=== PATIENT | female | born 1940 | race Asian ===

== ENCOUNTER 2016-06-27 10:35 | Inpatient (IN) | payer MEDICARE, MEDICAID ==
[2016-06-27] MEDS ORDERED: IOPAMIDOL 370 (76%) IV.SOLN 150 ML IV ONE (10:36)
[2016-06-27] MEDS ORDERED: ALBUTEROL/IPRATROPIUM 2.5/0.5 MG 3 ML/EACH DOSE ONE (11:22)
--- NOTE | 2016-06-27 11:38 | CT ---
HEAD W/O CON COMPARISON: None HISTORY: Headache, nausea, vomiting, and fatigue. TECHNIQUE: Using a [employer] Aquilion [address] scanner, images were obtained through the head. An automated dose reduction technique was used to minimize patient radiation dose. DOSE INFORMATION: CTDIvol (mGy): 51.70 DLP(mGycm): 887.30 FINDINGS: Mass: None Intracranial Hemorrhage: None Acute Infarction: None Cerebral hemispheres: No acute finding. Moderate atrophy and low attenuation white matter. Basal ganglia: Low-attenuation in both caudate nuclei. Thalami: Normal Brainstem: Normal Cerebellum: Normal Ventricles: Normal Basilar cisterns: Normal Corpus callosum: Normal Pituitary fossa: Empty sella. No enlargement. Middle ears and mastoid air cells: Mild chronic sclerosis of the left mastoid air cells. No fluid. Orbits and sinuses: Normal Skull and scalp: Normal Dural sinuses and vessels: Normal IMPRESSION: 1. No acute finding. No intracranial hemorrhage or cerebral edema. 2. Moderate cerebral atrophy with moderate chronic small vessel schema change of the cerebral white matter and the basal ganglia. 3. Mild chronic sclerosis of the left mastoid air cells. The report was sent to the emergency department electronic medical record system 06/27/2016 at 11:40
--- NOTE | 2016-06-27 11:44 | RAD ---
CHEST - 2 VIEWS COMPARISON: Chest 2 views, 01/13/2016 HISTORY: Dyspnea FINDINGS: Views: Frontal and lateral chest Lungs: Normal Heart and vessels: No acute finding. Cardiomegaly and atherosclerosis of the aorta. The pulmonary vessels are not enlarged. Trachea and bronchi: Normal Mediastinum and jadon: Normal Costophrenic sulci: Normal Chest wall and bones: No acute finding. Degenerative changes and hardware in the spine. Old compression fracture of T11. Upper abdomen: Surgical clips in the upper abdomen. IMPRESSION: No acute finding. Atherosclerosis of the aorta with elongation and myocardium likely. No infiltrate. No vascular congestion or pleural effusion.
[2016-06-27] MEDS ORDERED: HYDROCHLOROTHIAZIDE 25 MG TABLET ONE (11:49)
[2016-06-27 12:14] LABS: ABSOLUTE NEUTROPHIL COUNT 5.1 K/mm3 (1.8-7.7); BASO # 0.1 K/mm3 (0.0-0.2); BASO % 0.6 % (0.2-1.0); EOS # 0.8 (0.0-0.5); EOS % 9.1 % (0.9-2.9); HEMATOCRIT 31.2 % (37.0-47.0); HEMOGLOBIN 9.7 gm/l (12.0-16.0); IMM NEUT% 0.2 % (0-1); LYMPH % 23.8 % (15-45); MEAN CELL VOLUME 82.3 fl (81.0-99.0); MEAN CORPUSCULAR HEMOGLOBIN 25.6 pg (27.0-31.0); MEAN CORPUSCULAR HGB CONC 31.1 g/dl (33.0-37.0); MEAN PLATELET VOLUME 9.1 fl (7.4-10.4); MONO # 0.5 (0.0-0.8); MONO % 5.9 % (4-12); NEUT % 60.4 % (43-75); PLATELET COUNT 245 K/mm3 (130-400); RED CELL DISTRIBUTION WIDTH 17.9 % (11.5-14.5)
[2016-06-27] MEDS ORDERED: METOPROLOL TARTRATE 25 MG TABLET PO ONE (12:15)
[2016-06-27] MEDS ORDERED: DEXAMETHASONE 4 MG TABLET PO ONE (12:15)
[2016-06-27] MEDS ORDERED: LOSARTAN POTASSIUM 50 MG TABLET PO ONE (12:15)
[2016-06-27 12:35] LABS: CALCIUM 9.8 mg/dL (8.6-10.3)
[2016-06-27 12:41] LABS: TROPONIN I 0.02 ng/ml (0.0-0.06)
[2016-06-27 12:44] LABS: CKMB ISOENZYME 2.6 ng/ml (0.6-6.3)
[2016-06-27 12:49] LABS: PH,URINE 6.5 (5.0-8.0); URINE BILIRUBIN NEGATIVE (NEGATIVE); URINE BLOOD NEGATIVE (NEGATIVE); URINE GLUCOSE (UA) NEGATIVE (NEGATIVE); URINE LEUKOCYTE ESTERASE NEGATIVE (NEGATIVE); URINE NITRITE NEGATIVE (NEGATIVE); URINE PROTEIN NEGATIVE (NEGATIVE); URINE UROBILINOGEN NORMAL (0-1 mg/dl)
[2016-06-27 13:03] LABS: URINE APPEARANCE CLEAR; URINE COLOR YELLOW
--- NOTE | 2016-06-27 13:14 | CT ---
ABD/PELVIS W/ CON COMPARISON: CT abdomen and pelvis, 12/10/2013 HISTORY: Abdominal pain and vomiting Technique: No oral contrast. Intravenous injection 125 mL Isovue 370. Using a [employer] Aquilion [address] scanner, images were obtained from the diaphragm to the floor the pelvis. An automated dose reduction technique was used to minimize patient radiation dose. Dose information: CTDIvol (mGy): 25.30 DLP(mGycm): 1247.60 FINDINGS: Lung bases: Subsegmental atelectasis in the right middle lobe. Inferior mediastinum and heart: Normal. Liver: Normal. Gallbladder: Cholecystectomy Bile ducts: Normal. Pancreas: Atrophy. Spleen: Normal. Adrenal glands: Normal. Kidneys: Bilateral simple renal cysts. Ureters: Normal Urinary bladder: Normal. Uterus and adnexa: Hysterectomy Blood vessels: Normal Lymph nodes: Normal Stomach: Normal Duodenum: Normal Small intestine: Normal Appendix: Not visible. Colon: Diffuse diverticulosis. No diverticulitis. Abdominal wall and supporting musculature: Normal Bones: No acute finding. T12-L3 fusion hardware. Old compression fractures of T11 and L4, treated with vertebroplasty cement at L4. IMPRESSION: 1. No acute finding. 2. Incidental findings include subsegmental atelectasis in the right middle lobe, cholecystectomy, atrophy of the pancreas, bilateral simple renal cysts, hysterectomy, probable appendectomy, diffuse colonic diverticulosis, and postoperative changes and old compression fractures in the thoracolumbar spine. The report was sent to the emergency department electronic medical record system 06/27/2016 at 13:10
[2016-06-27] MEDS ORDERED: FENTANYL 100 MCG/2 ML VIAL ONE (13:31)
[2016-06-27] MEDS ORDERED: ACETAMINOPHEN 325 MG TABLET ONE (13:32)
[2016-06-27] MEDS ORDERED: KETOROLAC TROMETHAMINE 30 MG/ML 1 ML VIAL ONE (13:33)
[2016-06-27] MEDS ORDERED: AMLODIPINE BESYLATE 5 MG TABLET PO ONE (15:52)
[2016-06-27 16:04] VITALS: BMI 39.1
[2016-06-27] MEDS ORDERED: SODIUM CHLORIDE 0.9% 100 ML IV PRN (16:34)
[2016-06-27] MEDS ORDERED: MENTHOL/CETYLPYRD 1 EACH LOZENGE PO PRN (16:34)
[2016-06-27] MEDS ORDERED: BLISTEX LIPSTICK 1 EACH TP PRN (16:34)
[2016-06-27] MEDS ORDERED: BISACODYL 10 MG SUP PR PRN (16:34)
[2016-06-27] MEDS ORDERED: MAGNESIUM HYDROXIDE 30 ML UDCUP PO PRN (16:34)
[2016-06-27] MEDS ORDERED: BISACODYL 5 MG TABLET.EC PO PRN (16:34)
[2016-06-27] MEDS ORDERED: CEFTRIAXONE 1 GRAM DUPLEX 1 G in Premix (D5W) 50 ml 1 EACH IV SCH (16:45)
[2016-06-27] MEDS ORDERED: SODIUM CHLORIDE 0.9% 500 ML IV SCH (16:45)
[2016-06-27] MEDS ORDERED: PUMP TUBING ONE (16:53)
[2016-06-27] MEDS ORDERED: ALBUTEROL SULFATE MDI 60 PUFFS/INHALER IH PRN (17:01)
[2016-06-27] MEDS ORDERED: TRAZODONE HCL 50 MG TABLET PO PRN (17:01)
[2016-06-27] MEDS ORDERED: IRON SUCROSE COMPLEX 200 MG in SODIUM CHLORIDE 0.9% 100 ML IV ONE (17:30)
[2016-06-27] MEDS: ALBUTEROL/IPRATROPIUM 2.5/0.5 MG 3 ML/EACH DOSE IH PRN ×2 (17:30→21:04)
[2016-06-27 17:49] LABS: ARTERIAL BLOOD GAS HCO3 23.1 mmol/L (22.0-28.0); ARTERIAL BLOOD GAS PCO2 40.7 mmHg (35.0-45.0); ARTERIAL BLOOD GAS PO2 68.7 mmHg (80.0-90.0); ARTERIAL BLOOD GAS pH 7.372 (7.350-7.450)
[2016-06-27] MEDS: ACETAMINOPHEN 325 MG TABLET PO PRN (17:50)
[2016-06-27 17:58] LABS: THYROID STIMULATING HORMONE 1.19 uIU/ml (0.34-5.60)
[2016-06-27 19:15] LABS: FREE T4 1.12 ng/dL (0.58-1.64)
--- NOTE | 2016-06-27 19:56 | HP ---
GINA MEZA [id number] DATE OF ADMISSION: 06/27/2016 CHIEF COMPLAINT: Headache. HISTORY OF PRESENT ILLNESS: The patient is a 75-year-old female who has been noted to have elevated blood pressure and headaches over the last month or so. She had her caregiver check her blood pressure and it was 207/97, along with a headache and some nausea, and the headache had been reported as 9/10. She had been seen earlier this month with a similar blood pressure that had been reported going on for about a month. Her metoprolol had been increased to twice a day and the increase in medicine did not seem to help much. She denies prior history. The headache is bilateral, from the occiput to the temples bilaterally. No particular relieving factors. She does note some photophobia and some phonophobia. She has not had a fever, but in the emergency department she was noted to have at one time an oxygen saturation to 88% while on room air. PAST MEDICAL HISTORY: Remarkable for: 1. Anxiety. 2. Asthma. 3. She has had a history of DVT greater than three years ago and has been on Pradaxa for this. 4. She has a history of compression fractures. 5. Dyslipidemia. 6. Hypertension. 7. Obstructive sleep apnea, for which she uses nasal BiPAP. 8. Headaches. PAST SURGICAL HISTORY: Remarkable for: 1. Kyphoplasty. 2. Cholecystectomy. 3. Appendectomy. 4. Hysterectomy. 5. T12 - L3 fusion. 6. Additional L1 - L3 surgery in 2013. 7. Kidney stone removal. ALLERGIES: Listed as Gabapentin. MEDICATIONS: Estimated to be based on outpatient record and the list the caregiver provides is: 1. Acetaminophen 1,000 mg by mouth every six hours as needed. 2. ProAir two puffs inhaled every four hours as needed. 3. DuoNeb 3 mL inhaled four times a day as needed. 4. Vitamin C 500 mg by mouth twice a day. 5. Aspirin 81 mg by mouth daily. 6. Cetirizine 10 mg daily as needed. 7. Pradaxa 150 mg by mouth twice a day. 8. Docusate 100 mg by mouth twice a day. 9. Cymbalta 60 mg by mouth daily. 10. Ferrous sulfate 325 mg by mouth twice a day. 11. Fluticasone/salmeterol 500/50 one puff inhaled twice a day. 12. Hydrochlorothiazide 25 mg daily. 13. Combivent two puffs inhaled twice a day. 14. [place]away eye drops both eyes twice a day. 15. Losartan 100 mg by mouth daily. 16. Metoprolol 75 mg by mouth twice a day. 17. MiraLAX 17 grams by mouth daily. 18. Requip 1 mg by mouth twice a day 19. Zocor 10 mg by mouth every P.M. 20. Trazodone 100 mg at bedtime. 21. Vitamin D-3, 1,000 units by mouth daily. SOCIAL HISTORY: She lives in [facility]. She is , but her is [id number] back in [place]. She has had five children, three of which are living. No smoking and no alcohol. She goes to the [employer]. Hobbies include reading, knitting and crocheting. She does not have a POLST form. She does not have any pets. She was born in [place] and lived in [place] and then [place]. FAMILY HISTORY: Father, no data, as her parents do not seek medical care. Mom had at childbirth. REVIEW OF SYSTEMS: HEENT - eyes have been okay. She notes some vision difficulty, but it sounds like she is describing some degree of photophobia with light sensitivity. No scalp complaints. No hair changes, although she notes some general hair thinning. Ears are somewhat sensitive, but hearing is otherwise normal from an acuity perspective. Nose is okay. Mouth is okay, although she reports she does not have a lot of teeth left. Neck - she states it hurts all the times, but has been this way for years. Her caregiver notes that she has a spot near her right scapula which can be very sensitive. Pulmonary - breathing varies. She notes that she can have difficulty breathing sometimes and can have some sputum production on a regular basis which is usually light-colored. She notes she can be short of breath at times. Heart - no complaints. No chest pain and no chest pressure. GI - stomach has been okay. No pain. She did have loose stool this morning after having some medications for constipation yesterday. She had some vomiting at Urgent Care this morning, but there was no blood in it. She has had no blood in her stool or black tarry stools. Breasts - no breast complaints. No sores and no discharge. - no urinary complaints, although she notes occasionally can have incontinence due to weakness and difficulty getting to the bathroom, but that has not been a recent issue, that was over three weeks ago. She has had no dysuria. No hematuria. Extremities - legs have had some swelling. Both her caregiver and her son note that she has had some bags under her eyes, particularly in the morning. Skin - no complaints, just a sensitive spot on her back near the right shoulder blade. Neurologic - no history of stroke, no history of seizures. She has been noted to have some anemia and has been advised to follow-up for endoscopy to evaluate for occult blood loss. PHYSICAL EXAMINATION: GENERAL: Nontoxic pale female. VITAL SIGNS: Blood pressure is 197/98. Pulse 58. Respirations 22. Saturation 92% on room air, but previously as low as 88% in the emergency department. HEENT: Head is normocephalic, atraumatic. No rashes are seen. Scalp is without vesicles or other changes. Hair is normal and appears to be quite good for age. Eyes, externally unremarkable. Some mild lid puffiness is noted, but difficult to assess on initial visit. Ears - tympanic membranes appear to be normal. Hearing is good. Nose is normal, without discharge. Mouth, edentulous. Skull is normal. Some tenderness noted on the temples bilaterally, but no temporal pulse is felt. No rash or other facial tenderness noted. LUNGS: Generally clear to auscultation bilaterally. HEART: Regular rate and rhythm, without murmur. NECK: Demonstrates no rigidity. ABDOMEN: Soft, nontender and nondistended. Bowel sounds are normal. No bruits are noted. No masses noted. Obesity is noted centrally. GENITOURINARY: Exam is deferred. Caregiver reports that she has not had any problems that she has noted. BREASTS: Exam is deferred. Caregiver reports that she has not had any problems that she has noted. LUNGS: Unremarkable. EXTREITIES: No cyanosis, clubbing or edema, except for ankles with trace edema bilaterally. Bunions noted bilaterally, but no cellulitis, ulceration or significant abnormality noted. LABS: White count 8.5, hemoglobin 9.7, platelets 245 and MCV is 82.3. Sodium 138, potassium 3.7, chloride 100, C02 of 29, BUN of 18, creatinine 1.1, glucose 106 and calcium 9.8. CK-MB of 2.6. BNP is 77. Troponin 0.02. Urinalysis; pH of 6.5, specific gravity 1.010, otherwise negative. EKG: Normal sinus rhythm, 79 beats per minute. TX at 184. QRS of 115. QTC of 433. Bradley [address]. [address]. Brain CT; no acute changes. Moderate cerebral atrophy. Chronic small vessel changes. Cerebral white matter changes. Basal ganglia changes. Chronic sclerosis left mastoid, but no evidence of thrombosis or hemorrhage. 2. Chest x-ray; no acute changes. Cardiomegaly and atherosclerosis are evident. 3. Abdomen; no acute changes. Subsegmental atelectasis noted right middle lobe. Cholecystectomy. Prior appendectomy. Prior hysterectomy. Pancreas atrophy seen. Bilateral simple renal cysts noted. Diverticulosis. Old compression fracture and vertebroplasty at L4 noted. ASSESSMENT/PLAN: 1. Headache, with some migrainous features. CT, no acute changes. Would not consider LP at this time, with no nuchal rigidity, no fever, and patient on anticoagulation. Will recheck a sed rate and CRP. Evaluate for polymyalgia rheumatica or temporal arteritis. Her sed rate was 22 late in 2015. She did get steroids in the emergency department. Consider for starting prednisone at this time and if having marked response, might tend to confirm the diagnosis. 2. Iron-deficiency anemia. Questionable headache. Suspect she does have some degree of occult loss, as she is anticoagulated. Will plan a dose of Venofer at this time. The patient will be followed-up for outpatient endoscopy and recheck CBC in the morning. 3. History of asthma, with decreased oxygen noted in the ER. We will be checking an echocardiogram. Will check a blood culture, but at this point do not anticipate starting antibiotics. 4. Accelerated hypertension, without evidence of end-organ damage at this time. Will continue on current medications, but add Norvasc to what she is taking. 5. Eye puffiness. Her caregiver and son both mentioned this. Review of medications suggests H2 blockers or anti-inflammatories could be associated with this. Will monitor O2 sats, hold ketotifen. Her TSH was normal in March, but will recheck this as well. 6. History of DVT. She is on Pradaxa, and will continue for now, although this history at this point is somewhat remote, but defer to her primary care doctor. 7. Full code status. 8. VTE prophylaxis. Anticipate use of Pradaxa, as she has been on. cc: Dr. Alyssa Mak
[2016-06-27] MEDS: FERROUS SULFATE (65 Fe) 325 MG TABLET PO SCH (20:42)
[2016-06-27] MEDS: DOCUSATE SODIUM 100 MG CAPSULE PO SCH (20:42)
[2016-06-27] MEDS: ROPINIROLE 1 MG TABLET PO SCH (20:42)
[2016-06-27] MEDS: FLUTICASONE/SALMETEROL 500/50 14 PUFFS/DISK IH SCH (20:42)
[2016-06-27] MEDS: HYDROcodone/ACETAM 7.5/325MG TABLET PO PRN (20:42)
[2016-06-27] MEDS: AMLODIPINE BESYLATE 5 MG TABLET PO SCH (20:43)
[2016-06-27] MEDS: DABIGATRAN ETEXILATE MESYLATE 75 MG CAPSULE PO SCH (20:46)
[2016-06-27] MEDS: METOPROLOL TARTRATE 25 MG TABLET PO SCH (20:46)
[2016-06-27] MEDS ORDERED: METOPROLOL TARTRATE 25 MG TABLET PO SCH ×2 (21:00)
[2016-06-27] MEDS ORDERED: EtCO2 Monitoring Set ONE (21:43)
[2016-06-27] MEDS ORDERED: HYDROCODONE BIT/ACETAMINOPHEN 10 MG/325 MG TAB PO PRN (23:17)
[2016-06-27] MEDS ORDERED: HYDROCODONE/ACETAMINOPHEN 5/325MG TABLET PO ONE (23:37)
[2016-06-28] MEDS: HYDROcodone/ACETAM 7.5/325MG TABLET PO PRN ×2 (01:09→06:23)
[2016-06-28 06:34] LABS: ABSOLUTE NEUTROPHIL COUNT 4.5 K/mm3 (1.8-7.7); BASO % 0.2 % (0.2-1.0); HEMATOCRIT 32.5 % (37.0-47.0); HEMOGLOBIN 10.1 gm/l (12.0-16.0); IMM NEUT% 0.5 % (0-1); LYMPH # 1.5 (1.0-4.8); LYMPH % 23.6 % (15-45); MEAN CELL VOLUME 81.7 fl (81.0-99.0); MEAN CORPUSCULAR HEMOGLOBIN 25.4 pg (27.0-31.0); MEAN CORPUSCULAR HGB CONC 31.1 g/dl (33.0-37.0); MEAN PLATELET VOLUME 9.5 fl (7.4-10.4); MONO # 0.2 (0.0-0.8); MONO % 3.4 % (4-12); NEUT % 72.3 % (43-75); PLATELET COUNT 269 K/mm3 (130-400); RED CELL DISTRIBUTION WIDTH 18.1 % (11.5-14.5)
[2016-06-28 06:38] LABS: ALB/GLOB RATIO 1.3 (>1.0); ALBUMIN 3.8 gm/dL (3.5-5.7); CALCIUM 9.4 mg/dL (8.6-10.3)
[2016-06-28] MEDS: FERROUS SULFATE (65 Fe) 325 MG TABLET PO SCH (08:57)
[2016-06-28] MEDS: DABIGATRAN ETEXILATE MESYLATE 75 MG CAPSULE PO SCH (08:58)
[2016-06-28] MEDS: METOPROLOL TARTRATE 25 MG TABLET PO SCH (08:58)
[2016-06-28] MEDS: ACETAMINOPHEN 325 MG TABLET PO PRN (08:59)
[2016-06-28] MEDS: AMLODIPINE BESYLATE 5 MG TABLET PO SCH (08:59)
[2016-06-28] MEDS: DOCUSATE SODIUM 100 MG CAPSULE PO SCH (08:59)
[2016-06-28] MEDS: ROPINIROLE 1 MG TABLET PO SCH (08:59)
[2016-06-28] MEDS ORDERED: PREDNISONE 20 MG TABLET PO SCH (09:00)
[2016-06-28] MEDS ORDERED: LOSARTAN POTASSIUM 50 MG TABLET PO SCH (09:00)
[2016-06-28] MEDS ORDERED: POLYETHYLENE GLYCOL 3350 17 G POWD.SUSP PO SCH (09:00)
[2016-06-28] MEDS: FLUTICASONE/SALMETEROL 500/50 14 PUFFS/DISK IH SCH (09:00)
[2016-06-28] MEDS ORDERED: AMLODIPINE BESYLATE 5 MG TABLET PO ONE (11:05)
[2016-06-28] MEDS ORDERED: TRAMADOL HCL 50 MG TABLET PO PRN (11:14)
[2016-06-28] MEDS ORDERED: ACETAMINOPHEN 500 MG TABLET PO PRN (11:18)
[2016-06-28] MEDS ORDERED: CETIRIZINE HCL 10 MG TABLET PO PRN (11:18)
--- NOTE | 2016-06-28 11:18 | PDOC43 ---
- Subjective Chief Complaint: Headache Patient has had chronic headache and difficult to control HTN. Headache was worse than usual yesterday and she has had cough. Headache about the same today. Patient wants to go home. - Objective Vital Signs Temperature 98.6 F 06/28/16 08:00 Pulse Rate 73 06/28/16 08:00 Respiratory Rate 17 06/28/16 08:00 Blood Pressure 180/74 06/28/16 08:00 O2 Saturation by Pulse Oximetry 94 06/28/16 08:00 Oxygen Delivery Method Nasal Cannula Oxygen Flow Rate 2 Intake and Output 06/27/16 06/28/16 06/29/16 06:59 06:59 06:59 Intake Total 200 Output Total 2115 Balance -1915 General: Alert, Oriented x3, Cooperative, Mild Distress HEENT: Mucous membr. moist/pink Lungs: Other (exp wheezes) Cardiovascular: Regular Rate and Rhythm Abdomen: Soft, Normal Bowel Sounds, No Tenderness, No Masses Extremities: Normal Pulses, No Edema Skin: Normal Color Neurological: Normal Speech Psych/Mental Status: Normal Mood Laboratory 06/28/16 05:30 06/28/16 05:30 06/28/16 05:30 RBC 3.98 L MCH 25.4 L MCHC 31.1 L RDW 18.1 H Estimated GFR 40 L Current Medications: Current meds reviewed in EMR. - Problems: Assessment/Plan (1) Headache Status: ChronicAssessment/Plan: Chronic associated with hypertension. No other cause identifies and no response to steroids. Continue APAP, add tramadol. (2) Hypertension Qualifiers: Hypertension type: essential hypertension Qualifier Code: (I10) Essential (primary) hypertension Status: ChronicAssessment/Plan: Accelerated HTN, increase amlodipine. (3) Asthma Qualifiers: Asthma severity: severe persistent Status: ChronicAssessment/Plan: with transient hypoxemia, give duoneb and check room air saturation. (4) TOPHER treated with BiPAP Status: ChronicAssessment/Plan: Continue CPAP when sleeping (5) Anemia Status: ChronicAssessment/Plan: chronic iron deficiency, given venofer. (6) CKD (chronic kidney disease) stage 3, GFR 30-59 ml/min Status: ChronicAssessment/Plan: at her baseline. VTE Prophylaxis: dabigatran Disposition: Home today if does okay with therapies and not requiring O2.
[2016-06-28] MEDS ORDERED: DULOXETINE HCL 60 MG CAP PO SCH (11:30)
[2016-06-28] MEDS ORDERED: ALBUTEROL/IPRATROPIUM 2.5/0.5 MG 3 ML/EACH DOSE IH SCH (12:00)
[2016-06-28 16:45] VITALS: BP 165/62
[2016-06-28] MEDS ORDERED: SIMVASTATIN 10 MG TABLET PO SCH (20:00)
[2016-06-28] MEDS ORDERED: KETOTIFEN FUMARATE OU SCH (21:00)
[2016-06-28] MEDS ORDERED: DOCUSATE SODIUM 100 MG CAPSULE PO SCH (21:00)
[2016-06-29] MEDS ORDERED: HYDROCHLOROTHIAZIDE 25 MG TABLET PO SCH (09:00)
[2016-06-29] MEDS ORDERED: AMLODIPINE BESYLATE 5 MG TABLET PO SCH (09:00)
== END 2016-06-28 14:30 | disposition home or self-care (01) | DRG 103 ==
LOC: ED 10:35 → MS 13:33 → OBSVTOIN 16:34 → MS 06-28 01:09
PROVIDERS: ADMIT Family Medicine; ATTEND Family Medicine
DX: G43.009 Migraine without aura, not intractable, without status migrainosus (principal); J98.11 Atelectasis; R09.02 Hypoxemia; I12.9 Hypertensive chronic kidney disease with stage 1 through stage 4 chronic kidney disease, or unspecified chronic kidney disease; J45.50 Severe persistent asthma, uncomplicated; G47.33 Obstructive sleep apnea (adult) (pediatric); N18.3 Chronic kidney disease, stage 3 (moderate); F41.9 Anxiety disorder, unspecified; E78.5 Hyperlipidemia, unspecified; D50.9 Iron deficiency anemia, unspecified